=== PATIENT | female | born 1960 | race Caucasian/White ===

== ENCOUNTER → 2016-10-27 | Outpatient (CLI) | payer OTHER ==
--- NOTE | 2016-10-28 07:33 | XR ---
EXAMINATION TYPE: XR foot complete RT DATE OF EXAM: 10/27/2016 1:58 PM CLINICAL HISTORY: pain TECHNIQUE: Frontal, lateral and oblique images of the right foot are obtained. COMPARISON: None. FINDINGS: There is no acute fracture/dislocation evident. The joint spaces appear within normal tenorio its. The overlying soft tissue appears unremarkable. IMPRESSION: There is no acute fracture or dislocation. ICD 10 NO FRACTURE, INITIAL EVALUATION
== END | disposition home or self-care (01) ==
LOC: RADXRYALE 10:30
PROVIDERS: ATTEND Internal Medicine
DX: M79.671 Pain in right foot (principal)

== ENCOUNTER → 2016-12-23 | Outpatient (CLI) | payer OTHER ==
[2016-12-23 11:50] LABS: Basophils # (A) 0.1 k/uL (0-0.2); Basophils % (A) 1 %; CH 29.6; CHCM 33.6; Eosinophils # (A) 0.1 k/uL (0-0.7); Eosinophils % (A) 1 %; HCT 40.6 % (34.0-46.0); HDW 2.48; HGB 13.7 gm/dL (11.4-16.0); Luc # (Auto) 0.16; Luc % (Auto) 2; Lymphocytes % (A) 24 %; MCH 29.9 pg (25.0-35.0); MCHC 33.7 g/dL (31.0-37.0); MCV 88.7 fL (80.0-100.0); Mean Platelet Volume 8.5; Monocytes # (A) 0.4 k/uL (0-1.0); Monocytes % (A) 5 %; Neutrophils # (A) 5.5 k/uL (1.3-7.7); Neutrophils % (A) 67 %; RBC 4.58 m/uL (3.80-5.40); RDW 13.1 % (11.5-15.5); WBC 8.2 k/uL (3.8-10.6); WBC (Perox) 8.46
[2016-12-23 14:41] LABS: Erythrocyte Sedimentation Rate 6 mm/hr (0-20)
== END ==
LOC: LABWHC1 11:09
PROVIDERS: ATTEND Physical Medicine & Rehabilitation
DX: M54.2 Cervicalgia (principal); M35.3 Polymyalgia rheumatica
CPT/HCPCS: 36415; 85025; 85652; 86140

== ENCOUNTER → 2018-11-11 | Outpatient (CLI) | payer OTHER ==
--- NOTE | 2018-11-11 17:47 | MR ---
EXAMINATION TYPE: MR cervical spine wo con DATE OF EXAM: 11/11/2018 COMPARISON: None HISTORY: Neck pain, headaches, BUE weakness CONTRAST: Performed utilizing 0 mL intravenous Gadavist gadolinium contrast. TECHNIQUE: Multiplanar multiecho imaging on a 3.0 Ligia magnet is performed through the cervical spin e. FINDINGS: The craniovertebral junction is normal. Vertebral body alignment is normal. There is an anterior fusion at C5-6. C7-T1: No focal disc herniation or significant disc bulge is evident. No spinal canal stenosis or n eural foraminal stenosis is present. C6-7: Mild broad-based disc bulge is present with anterior thecal sac flattening. No cord contact is evident. No spinal canal stenosis is present. Moderate bilateral foraminal narrowing from uncovertebr al joint hypertrophy is present.. C5-6: Uncovertebral joint hypertrophy is present with mild right foraminal narrowing. Mild endplate c hange may have anterior thecal sac contact in the right and left paracentral regions. No cord contact or spinal canal stenosis is present.. C4-5: No focal disc herniation or significant disc bulge is evident. No spinal canal stenosis or abebe ral foraminal stenosis is present. C3-4: Mild disc bulge may be present with anterior thecal sac contact. No cord contact is evident. No spinal canal stenosis or neural foraminal stenosis is present. C2-3: No focal disc herniation or significant disc bulge is evident. No spinal canal stenosis or abebe ral foraminal stenosis is present. Cord maintains normal signal through its visualized course. IMPRESSIONS: 1. Moderate foraminal narrowing due to uncovertebral joint hypertrophy at C6-7 bilaterally and mild r ight foraminal narrowing at C5-6. 2. No significant disc bulging. No spinal canal stenosis or cord contact is evident.
== END | disposition home or self-care (01) ==
LOC: RADMRIMAIN 07:42
PROVIDERS: ATTEND Physical Medicine & Rehabilitation
DX: M48.02 Spinal stenosis, cervical region (principal); M79.10 Myalgia, unspecified site; E03.9 Hypothyroidism, unspecified; M54.6 Pain in thoracic spine; Z98.1 Arthrodesis status
CPT/HCPCS: 72141

== ENCOUNTER → 2020-04-21 | Outpatient (CLI) | payer OTHER ==
--- NOTE | 2020-04-21 14:45 | XR ---
EXAMINATION TYPE: XR chest 2V DATE OF EXAM: 04/21/2020 COMPARISON: Chest x-ray 04/25/2014 HISTORY: Cough and shortness of breath TECHNIQUE: Frontal and lateral views of the chest are obtained. FINDINGS: There is no focal air space opacity, pleural effusion, or pneumothorax seen. The cardiac silhouette size is within normal limits. The osseous structures are intact. Postop changes noted to the cervical spine. IMPRESSION: No acute cardiopulmonary process.
== END | disposition home or self-care (01) ==
LOC: RADXRYALE 13:43
PROVIDERS: ATTEND Internal Medicine
DX: R05 Cough (principal)
CPT/HCPCS: 71046

== ENCOUNTER → 2021-07-17 | Outpatient (CLI) | payer OTHER | END | disposition home or self-care (01) | LOC: LABWHC1 10:52 | PROVIDERS: ATTEND Nurse Practitioner Family | DX: G70.00 Myasthenia gravis without (acute) exacerbation (principal); H53.9 Unspecified visual disturbance | CPT/HCPCS: 36415; 83519 ==

== ENCOUNTER → 2021-12-23 | Outpatient (CLI) | payer OTHER ==
--- NOTE | 2021-12-23 11:34 | FL ---
EXAMINATION TYPE: FL barium swallow w video DATE OF EXAM: 12/23/2021 MODIFIED SWALLOW / DEGLUTITION STUDY CLINICAL HISTORY: Dysphagia. TECHNIQUE: Deglutition study is performed utilizing thin liquid barium, nectar thick liquid barium, pudding consistency, and barium coated cracker. COMPARISON: None available FINDINGS: Deep silent laryngeal penetration was noted with the thin liquid consistency, cleared with cough. Questionable transient laryngeal penetration with the nectar consistency. No di aspiration. Total fluoroscopic time 2 minutes and 5 seconds. No images on PACS. IMPRESSION: Laryngeal penetration as described above. Please refer to speech therapist notes for furt her details.
== END | disposition home or self-care (01) ==
LOC: RADFLMAIN 10:48
PROVIDERS: ATTEND Psychiatry & Neurology Neurology
DX: R13.10 Dysphagia, unspecified (principal)
CPT/HCPCS: 74230

== ENCOUNTER 2022-02-20 14:34 | Emergency (ER) | payer OTHER ==
[2022-02-20 14:39] VITALS: TEMP 98.3
[2022-02-20] MEDS ORDERED: HYDROmorphone 0.5 MG/0.5 ML SYRINGE IVP STA (15:46)
[2022-02-20] MEDS ORDERED: SODIUM CHLORIDE 0.9% 500 ML 500 ML IV ONE (15:46)
--- NOTE | 2022-02-20 15:49 | ED ---
General Adult HPI - General Chief complaint: Abdominal Pain Stated complaint: CAL Time Seen by Provider: 02/20/22 15:40 Source: patient, RN notes reviewed, old records reviewed Mode of arrival: wheelchair Limitations: no limitations - History of Present Illness Initial comments: 61-year-old female history of myasthenia gravis presenting for evaluation of right-sided abdominal pain which is been present for less than 24 hours. There's been associated nausea. Patient describes the pain is predominantly right upper quadrant with some flank pain. She has not had fever. His been nausea without significant vomiting. She has not had previous abdominal surgery. She had taken some pain medication and omeprazole at home without significant relief. - Related Data Home Medications Medication Instructions Recorded Confirmed ALPRAZolam [Xanax] 1 mg PO BID 02/08/14 02/20/22 Levothyroxine Sodium [Synthroid] 125 mcg PO DAILY 02/08/14 02/20/22 Primidone [Mysoline] 50 mg PO DAILY 02/08/14 02/20/22 Omeprazole 20 mg PO DAILY PRN 02/20/22 02/20/22 Pyridostigmine [Mestinon] 60 mg PO TID 02/20/22 02/20/22 Topiramate [Topamax] 50 mg PO DAILY 02/20/22 02/20/22 tiZANidine HCL 4 mg PO BID PRN 02/20/22 02/20/22 Previous Rx's Medication Instructions Recorded HYDROcodone/APAP 7.5-325MG [[place] 1 tab PO Q6HR PRN 3 Days #12 tab 02/20/22 7.5-325] Allergies Allergy/AdvReac Type Severity Reaction Status Date / Time Iodinated Contrast Media Allergy Anaphylaxis Verified 02/20/22 18:40 [Iodinated Contrast Media - IV Dye] peanut Allergy Anaphylaxis Verified 02/20/22 18:40 shellfish derived Allergy Anaphylaxis Verified 02/20/22 18:40 Review of Systems ROS Statement: Those systems with pertinent positive or pertinent negative responses have been documented in the HPI. ROS Other: All systems not noted in ROS Statement are negative. Past Medical History Past Medical History: Thyroid Disorder Additional Past Medical History / Comment(s): Mysthanias Gravis History of Any Multi-Drug Resistant Organisms: None Reported Past Surgical History: Tonsillectomy, Tubal Ligation Additional Past Surgical History / Comment(s): thyrroidectomy, neck surgery Past Anesthesia/Blood Transfusion Reactions: No Reported Reaction Past Psychological History: Anxiety Smoking Status: Current every day smoker Past Alcohol Use History: Rare Past Drug Use History: None Reported General Exam Limitations: no limitations General appearance: alert, in no apparent distress Head exam: Present: atraumatic, normocephalic Eye exam: Present: normal appearance, PERRL ENT exam: Present: normal exam Neck exam: Present: normal inspection. Absent: tenderness, meningismus Respiratory exam: Present: normal lung sounds bilaterally. Absent: respiratory distress, wheezes Cardiovascular Exam: Present: regular rate, normal rhythm GI/Abdominal exam: Present: soft, tenderness, guarding (Right upper quadrant). Absent: distended Extremities exam: Present: normal inspection, normal capillary refill. Absent: pedal edema, calf tenderness Neurological exam: Present: alert, oriented X3, CN II-XII intact. Absent: motor sensory deficit Psychiatric exam: Present: normal affect, normal mood Skin exam: Present: warm, dry, intact. Absent: cyanosis, diaphoretic Course Vital Signs 02/20/22 02/20/22 02/20/22 14:36 16:00 17:00 Temperature 98.3 F Pulse Rate 71 62 85 Respiratory 16 18 18 Rate Blood Pressure 130/83 147/68 113/86 O2 Sat by Pulse 96 98 97 Oximetry 02/20/22 18:00 Temperature Pulse Rate 80 Respiratory 16 Rate Blood Pressure 122/82 O2 Sat by Pulse 96 Oximetry EKG Findings - EKG Comments: EKG Findings:: EKG: Sinus bradycardia rate of 59, MT interval 154, QRS duration 100, QTC [address] segment elevation. Medical Decision Making - Medical Decision Making 61-year-old female presenting with right sided abdominal pain and flank pain. Patient did have moderate right upper quadrant pain. Ultrasound was performed which is negative for acute cholecystitis but shows hydronephrosis of the right kidney there is hematuria. There is concern for renal colic and obstructing kidney stone. CT is ordered which shows a 9 mm proximal UPJ stone. Other laboratory testing is unremarkable. Patient's pain is controlled in the emergency department. I did discuss case with Dr. Daly covering for urology. Patient is stable for discharge at this time with close follow-up as an outpatient. Return parameters are discussed. Patient has [place] at home but will be given a short course of [place] 7.5 for increased pain. - Lab Data Result diagrams: 02/20/22 15:26 02/20/22 17:11 Lab Results 02/20/22 02/20/22 02/20/22 Range/Units 15:26 15:26 15:26 WBC 17.3 H (3.8-10.6) k/uL RBC 4.79 (3.80-5.40) m/uL Hgb 13.9 (11.4-16.0) gm/dL Hct 43.1 (34.0-46.0) % MCV 90.0 (80.0-100.0) fL MCH 29.1 (25.0-35.0) pg MCHC 32.3 (31.0-37.0) g/dL RDW 14.0 (11.5-15.5) % Plt Count 246 (150-450) k/uL MPV 10.3 Neutrophils % 91 % Lymphocytes % 4 % Monocytes % 3 % Eosinophils % 1 % Basophils % 0 % Neutrophils # 15.8 H (1.3-7.7) k/uL Lymphocytes # 0.7 L (1.0-4.8) k/uL Monocytes # 0.6 (0-1.0) k/uL Eosinophils # 0.1 (0-0.7) k/uL Basophils # 0.1 (0-0.2) k/uL Hypochromasia Slight Poikilocytosis Slight PT 10.8 (9.0-12.0) sec INR 1.0 (<1.2) APTT 24.5 (22.0-30.0) sec Sodium (137-145) mmol/L Potassium (3.5-5.1) mmol/L Chloride (98-107) mmol/L Carbon Dioxide (22-30) mmol/L Anion Gap mmol/L BUN (7-17) mg/dL Creatinine (0.52-1.04) mg/dL Est GFR (CKD-EPI)AfAm (>60 ml/min/1.73 sqM) Est GFR (CKD-EPI)NonAf (>60 ml/min/1.73 sqM) Glucose (74-99) mg/dL Plasma Lactic Acid Krystian 1.6 (0.7-2.0) mmol/L Calcium (8.4-10.2) mg/dL Total Bilirubin (0.2-1.3) mg/dL AST (14-36) U/L ALT (4-34) U/L Alkaline Phosphatase (38-126) U/L Total Protein (6.3-8.2) g/dL Albumin (3.5-5.0) g/dL Amylase (30-110) U/L Lipase (23-300) U/L Urine Color Urine Appearance (Clear) Urine pH (5.0-8.0) Ur Specific [place] (1.001-1.035) Urine Protein (Negative) Urine Glucose (UA) (Negative) Urine Ketones (Negative) Urine Blood (Negative) Urine Nitrite (Negative) Urine Bilirubin (Negative) Urine Urobilinogen (<2.0) mg/dL Ur Leukocyte Esterase (Negative) Urine RBC (0-5) /hpf Ur Squamous Epith Cells (0-4) /hpf Hyaline Casts (0-2) /lpf Urine Mucus (None) /hpf 02/20/22 02/20/22 Range/Units 16:14 17:11 WBC (3.8-10.6) k/uL RBC (3.80-5.40) m/uL Hgb (11.4-16.0) gm/dL Hct (34.0-46.0) % MCV (80.0-100.0) fL MCH (25.0-35.0) pg MCHC (31.0-37.0) g/dL RDW (11.5-15.5) % Plt Count (150-450) k/uL MPV Neutrophils % % Lymphocytes % % Monocytes % % Eosinophils % % Basophils % % Neutrophils # (1.3-7.7) k/uL Lymphocytes # (1.0-4.8) k/uL Monocytes # (0-1.0) k/uL Eosinophils # (0-0.7) k/uL Basophils # (0-0.2) k/uL Hypochromasia Poikilocytosis PT (9.0-12.0) sec INR (<1.2) APTT (22.0-30.0) sec Sodium 139 (137-145) mmol/L Potassium 4.2 (3.5-5.1) mmol/L Chloride 110 H (98-107) mmol/L Carbon Dioxide 25 (22-30) mmol/L Anion Gap 4 mmol/L BUN 19 H (7-17) mg/dL Creatinine 0.69 (0.52-1.04) mg/dL Est GFR (CKD-EPI)AfAm >90 (>60 ml/min/1.73 sqM) Est GFR (CKD-EPI)NonAf >90 (>60 ml/min/1.73 sqM) Glucose 113 H (74-99) mg/dL Plasma Lactic Acid Krystian (0.7-2.0) mmol/L Calcium 9.3 (8.4-10.2) mg/dL Total Bilirubin 0.5 (0.2-1.3) mg/dL AST 23 (14-36) U/L ALT 15 (4-34) U/L Alkaline Phosphatase 113 (38-126) U/L Total Protein 6.9 (6.3-8.2) g/dL Albumin 4.4 (3.5-5.0) g/dL Amylase 65 (30-110) U/L Lipase 62 (23-300) U/L Urine Color Light Red Urine Appearance Cloudy H (Clear) Urine pH 5.5 (5.0-8.0) Ur Specific [place] 1.023 (1.001-1.035) Urine Protein 1+ H (Negative) Urine Glucose (UA) Negative (Negative) Urine Ketones 1+ H (Negative) Urine Blood Large H (Negative) Urine Nitrite Negative (Negative) Urine Bilirubin Negative (Negative) Urine Urobilinogen <2.0 (<2.0) mg/dL Ur Leukocyte Esterase Small H (Negative) Urine RBC >182 H (0-5) /hpf Ur Squamous Epith Cells 2 (0-4) /hpf Hyaline Casts 10 H (0-2) /lpf Urine Mucus Moderate H (None) /hpf Disposition Clinical Impression: Calculus of kidney, Hydronephrosis with renal and ureteral calculous obstruction Disposition: HOME SELF-CARE Condition: Fair Instructions (If sedation given, give patient instructions): Kidney Stones (ED) Prescriptions: HYDROcodone/APAP 7.5-325MG [[place] 7.5-325] 1 tab PO Q6HR PRN 3 Days #12 tab PRN Reason: Pain Is patient prescribed a controlled substance at d/c from ED?: No Referrals: Pam Infante MD [Primary Care Provider] - 1-2 days Sulaiman Daly MD [STAFF PHYSICIAN] - 1-2 days Time of Disposition: 18:50
[2022-02-20 16:20] LABS: Basophils # (A) 0.1 k/uL (0-0.2); Basophils % (A) 0 %; Eosinophils # (A) 0.1 k/uL (0-0.7); Eosinophils % (A) 1 %; HCT 43.1 % (34.0-46.0); HGB 13.9 gm/dL (11.4-16.0); Hypochromasia Slight; Lymphocytes # (A) 0.7 k/uL (1.0-4.8); Lymphocytes % (A) 4 %; MCH 29.1 pg (25.0-35.0); MCHC 32.3 g/dL (31.0-37.0); Mean Platelet Volume 10.3; Monocytes # (A) 0.6 k/uL (0-1.0); Monocytes % (A) 3 %; Neutrophils # (A) 15.8 k/uL (1.3-7.7); Neutrophils % (A) 91 %; Platelet Count 246 k/uL (150-450); Poikilocytosis Slight; RBC 4.79 m/uL (3.80-5.40); WBC 17.3 k/uL (3.8-10.6)
[2022-02-20 16:29] LABS: Appearance,Urine Cloudy (Clear); Bilirubin,Urine Negative (Negative); Blood,Urine Large (Negative); Color,Urine Light Red; Glucose,Urine (UA) Negative (Negative); Hyaline Casts,Urine 10 /lpf (0-2); Ketones,Urine 1+ (Negative); Leukocyte Esterase,Urine Small (Negative); Mucus,Urine Moderate /hpf; Nitrite,Urine Negative (Negative); PH, Urine 5.5 (5.0-8.0); Protein,Urine 1+ (Negative); RBC,Urine >182 /hpf (0-5); Specific Gravity,Urine 1.023 (1.001-1.035); Squamous Epithelial Cell,Urine 2 /hpf (0-4); Urobilinogen,Urine <2.0 mg/dL (<2.0)
[2022-02-20 16:49] LABS: Partial Thromboplastin Time 24.5 sec (22.0-30.0); Prothrombin Time 10.8 sec (9.0-12.0)
--- NOTE | 2022-02-20 16:49 | US ---
EXAMINATION TYPE: US gallbladder DATE OF EXAM: 02/20/2022 COMPARISON: NONE CLINICAL HISTORY: ruq pain. Right flank pain. NPO. EXAM MEASUREMENTS: Liver Length: 19.3 cm Gallbladder Wall: 0.2 cm CBD: 0.5 cm Right Kidney: 9.4 x 5.9 x 6.0 cm Pancreas: Obscured by bowel gas Liver: wnl Gallbladder: wnl Evidence for sonographic High's sign: neg CBD: Limited visualization Right Kidney: Moderate hydronephrosis. Anterior cortical septated cystic lesion seen = 3.4 x 2.7 x 1.9 cm IMPRESSION: 1. Moderate right hydronephrosis. 2. No evidence for cholecystitis. 3. Complex right renal cyst with septations. This could be completely evaluated with nonemergent MRI or CT with IV contrast renal mass protocol.
[2022-02-20] MEDS ORDERED: HYDROmorphone 1 MG/ML 1 ML SYRINGE IVP STA (17:02)
[2022-02-20 17:30] LABS: ALT 15 U/L (4-34); AST 23 U/L (14-36); African American GFR (CKD) >90 (>60 ml/min/1.73 sqM); Albumin 4.4 g/dL (3.5-5.0); Alkaline Phosphatase 113 U/L (38-126); Amylase 65 U/L (30-110); Anion Gap 4 mmol/L; Blood Urea Nitrogen 19 mg/dL (7-17); Calcium 9.3 mg/dL (8.4-10.2); Carbon Dioxide 25 mmol/L (22-30); Chloride 110 mmol/L (98-107); Glucose 113 mg/dL (74-99); Lipase 62 U/L (23-300); Non-African American GFR(CKD) >90 (>60 ml/min/1.73 sqM); Potassium 4.2 mmol/L (3.5-5.1); Sodium 139 mmol/L (137-145); Total Bilirubin 0.5 mg/dL (0.2-1.3); Total Protein 6.9 g/dL (6.3-8.2)
--- NOTE | 2022-02-20 17:59 | CT ---
EXAMINATION TYPE: CT abdomen pelvis wo con CT DLP: 446.1 mGycm, Automated exposure control for dose reduction was used. DATE OF EXAM: 02/20/2022 5:31 PM COMPARISON: None CLINICAL INDICATION:Female, 61 years old with history of flank pain; RT side flank pain and nausea TECHNIQUE: Standard CT of the abdomen and pelvis without IV or oral contrast. Lack of IV or oral co ntrast limits evaluation of solid and hollow organ viscera. Coronal and sagittal reformats were perfo rmed. FINDINGS: LOWER CHEST: Unremarkable ABDOMEN LIVER: Unremarkable GALLBLADDER AND BILE DUCTS: Unremarkable. PANCREAS: Unremarkable. SPLEEN: Scattered calcified granulomas. ADRENAL GLANDS: Unremarkable. KIDNEYS AND URETERS: Moderate right hydronephrosis secondary to 9 mm calculus at the ureteropelvic ju nction. Additional nonobstructing renal calculi bilaterally. There is increased right renal perinephr ic fat stranding compared to left. No evidence of left hydronephrosis. PELVIS BLADDER: Unremarkable REPRODUCTIVE: Fibroid uterus with coarse calcifications. ABDOMEN & PELVIS STOMACH AND BOWEL: No evidence of bowel obstruction. PERITONEUM: No evidence of pneumoperitoneum or free fluid. VASCULATURE: No evidence of aortic aneurysm. MUSCULOSKELETAL: No acute osseous abnormalities. LYMPH NODES: No gross evidence for lymphadenopathy. SOFT TISSUE/ABDOMINAL WALL: Unremarkable IMPRESSION: 1. Moderate right hydronephrosis secondary to 9 mm calculus at the ureteropelvic junction. 2. Additional nonobstructing renal calculi bilaterally.
[2022-02-20] MEDS ORDERED: KETOROLAC 15 MG/ML 1 ML VIAL IVP STA (18:00)
[2022-02-20 18:47] VITALS: BP 122/82; PULSE 80; RESP 16
== END 2022-02-20 19:10 | disposition home or self-care (01) ==
LOC: EC 14:34
DX: N13.2 Hydronephrosis with renal and ureteral calculous obstruction (principal); F17.200 Nicotine dependence, unspecified, uncomplicated; E07.9 Disorder of thyroid, unspecified; Z91.010 Allergy to peanuts; Z91.013 Allergy to seafood; Z91.041 Radiographic dye allergy status; Z79.890 Hormone replacement therapy
CPT/HCPCS: 36415; 93005; 80053; 82150; 83605; 83690; 85025; 85610; 85730; 81001; 76705; 74176; 99284; 96374; 96361; 96375; J1170 ×2; J1885

== ENCOUNTER 2022-03-04 07:19 | Day surgery (SDC) | payer OTHER ==
--- NOTE | 2022-02-26 11:59 | P.HPIHPCON ---
History of Present Illness H&P Date: 02/26/22 This is a 61-year-old female with history of a 1 cm right-sided proximal stone, and multiple nonobstructive renal stones. Option of ureteroscopy with holmium laser versus ESWL were discussed. Discussed risk and benefit of each approach. She agreed to proceed with right-sided ureteroscopy with holmium laser lithotripsy. Discussed the risk which includes but not limited to bleeding, infection, injury to the ureter. Discussed also risk from anesthesia. She understood all the risk and agree to proceed with a right-sided ureteroscopy, with holmium laser lithotripsy, stone basketing and stent insertion Consent for Procedure: I have explained the operation/procedure to the patient, including the risks, benefits, side effects, alternative therapies (including not receiving the proposed treatment or service), the likelihood of the patient achieving his/her goals, and potential recuperation problems for the procedure/sedation/analgesia, as well as any blood products, if indicated. I also explained to the patient the risks, benefits and side effects of the alternatives, as well as the risks related to not receiving the proposed procedure, care, treatment, or services. Past Medical History Past Medical History: Thyroid Disorder Additional Past Medical History / Comment(s): Mysthanias Gravis History of Any Multi-Drug Resistant Organisms: None Reported Past Surgical History: Tonsillectomy, Tubal Ligation Additional Past Surgical History / Comment(s): thyrroidectomy, neck surgery Past Anesthesia/Blood Transfusion Reactions: No Reported Reaction Past Psychological History: Anxiety Smoking Status: Current every day smoker Past Alcohol Use History: Rare Past Drug Use History: None Reported Medications and Allergies Home Medications Medication Instructions Recorded Confirmed Type ALPRAZolam [Xanax] 1 mg PO BID 02/08/14 02/20/22 History Levothyroxine Sodium [Synthroid] 125 mcg PO DAILY 02/08/14 02/20/22 History Primidone [Mysoline] 50 mg PO DAILY 02/08/14 02/20/22 History HYDROcodone/APAP 7.5-325MG [[place] 1 tab PO Q6HR PRN 3 Days #12 tab 02/20/22 Rx 7.5-325] Omeprazole 20 mg PO DAILY PRN 02/20/22 02/20/22 History Pyridostigmine [Mestinon] 60 mg PO TID 02/20/22 02/20/22 History Topiramate [Topamax] 50 mg PO DAILY 02/20/22 02/20/22 History tiZANidine HCL 4 mg PO BID PRN 02/20/22 02/20/22 History Allergies Allergy/AdvReac Type Severity Reaction Status Date / Time Iodinated Contrast Media Allergy Anaphylaxis Verified 02/20/22 18:40 [Iodinated Contrast Media - IV Dye] peanut Allergy Anaphylaxis Verified 02/20/22 18:40 shellfish derived Allergy Anaphylaxis Verified 02/20/22 18:40 Surgical - Exam - General no distress - Eyes normal ocular movement, no pale - ENT normal nares, normal mucosa - Respiratory normal expansion, normal respiratory effort - Abdomen Abdomen: soft, non tender Assessment and Plan Assessment: OR for right-sided ureteroscopy, with holmium laser lithotripsy, stone basketing and stent insertion
[2022-03-03 09:03] VITALS: BMI 23.5
[~2022-03-04 07:19] MED LIST: DEXAMETHASONE SOD PHOSPHATE 4 MG/ML 1 ML VIAL IV ONE; LACTATED RINGERS 1,000 ML IV SCH; ONDANSETRON 4 MG/2 ML VIAL IVP ONE
--- NOTE | 2022-03-04 07:39 | XR ---
EXAMINATION TYPE: XR KUB DATE OF EXAM: 03/04/2022 7:32 AM CLINICAL HISTORY: Right-sided flank pain. TECHNIQUE: Single supine KUB image of the abdomen is obtained. COMPARISON: CT abdomen and pelvis February 20, 2022. FINDINGS: Persistent 9 mm calculus medial to the lower pole right kidney presumed within the proximal ureter at L3-L4 disc space level likely stable in position. There is 9 mm calculus lower pole right kidney current study likely changed in position now lower pole calyx level. Tiny left-sided renal noam culi CT less well seen on plain films. The 6 mm upper pole right renal calculus at L2 level is not cl early seen on plain films. Scattered small bilateral pelvic phleboliths redemonstrated mid to lower p ole level. Overall nonobstructive bowel gas pattern. Visualized osseous structures are intact. Impression: As above.
[2022-03-04] MEDS ORDERED: fentaNYL (PF) 50 MCG/ML 2 ML AMP IV ONE (08:27)
[2022-03-04 08:30] VITALS: TEMP 97.4
[2022-03-04] MEDS ORDERED: PROPOFOL 10 MG/ML 20 ML VIAL IV ONE (09:30)
[2022-03-04] MEDS ORDERED: LIDOCAINE 2% INJ 20 MG/ML (2 ML VIAL) ONE (09:30)
[2022-03-04] MEDS ORDERED: fentaNYL (PF) 50 MCG/ML 2 ML AMP ONE (09:30)
[2022-03-04] MEDS ORDERED: MIDAZOLAM 2 MG/2 ML VIAL ONE (09:30)
[2022-03-04 10:55] VITALS: RESP 16
[2022-03-04] MEDS: HYDROmorphone 0.5 MG/0.5 ML SYRINGE IVP PRN ×2 (10:56→11:01)
--- NOTE | 2022-03-04 10:56 | FL ---
EXAMINATION TYPE: FL guidance operating room DATE OF EXAM: 03/04/2022 CLINICAL HISTORY: Right-sided kidney stone. TECHNIQUE: Fluoroscopy. COMPARISON: X-ray KUB earlier today. FINDINGS: Fluoroscopic guidance was provided during left-sided stone lithotripsy treatment procedure performed by Dr. Walton. A total of 20 seconds of fluoroscopic time was utilized during the procedu re and 2 spot images was acquired. Intraoperative images show retraction of the ureter stent and adva ncement of guidewire. IMPRESSION: As Above.
[2022-03-04 12:37] VITALS: BP 122/74; PULSE 63
--- NOTE | 2022-03-04 15:01 | P.OP ---
Date of Procedure: 03/04/22 Preoperative Diagnosis: Left ureteral stone Postoperative Diagnosis: Same Procedure(s) Performed: Cystoscopy, right ureteroscopy, holmium laser lithotripsy, stone basketing and stent insertion Implants: 6-Czech by 24 cm stent in the right ureter Anesthesia: TK Surgeon: Xavi Kuhn Estimated Blood Loss (ml): 20 Pathology: other (left renal stone) Condition: stable Disposition: PACU Indications for Procedure: This is a 61-year-old female with history of a 1 cm right-sided proximal stone, and multiple nonobstructive renal stones. Option of ureteroscopy with holmium laser versus ESWL were discussed. Discussed risk and benefit of each approach. She agreed to proceed with right-sided ureteroscopy with holmium laser lithotripsy. Discussed the risk which includes but not limited to bleeding, infection, injury to the ureter. Discussed also risk from anesthesia. She understood all the risk and agree to proceed with a right-sided ureteroscopy, with holmium laser lithotripsy, stone basketing and stent insertion Operative Findings: Large stone in the proximal ureter multiple stones within the lower pole Description of Procedure: Patient brought to the operating room, general anesthesia was induced which was prepped and draped in sterile fashion and placed in dorsal lithotomy position. Cystoscopy fitted with a 21-Czech sheath was inserted per urethra, cystoscopy was performed which showed no abnormality within the bladder. Attention was then carried to the right ureteral orifice, a semirigid ureteroscope was advanced up the right ureteral orifice, the scope was advanced into the proximal ureter where the stone was visualized. Of note the stone was at the UPJ with significant edema around the stone. I attempted to laser the stone of the proximal ureter, but the stone moved into the kidney. At this time a sensor wire was advanced through the ureteroscope and the ureteroscope was withdrawn with the wire in place. Next a 1214 Czech access sheath was passed over the wire into the proximal ureter. Next a flexibile ureteroscope was inserted through the access sheath, renoscopy was performed which visualized the stone which was now within the renal pelvis. Using the holmium laser the stone was fragmented into small fragments, sizable fragments were removed and sent for analysis. Additionally there were multiple stones within the lower pole which were repositioned to the upper pole using the stone basket and fragmented, again sizable fragments were removed using the stone basket. Repeat renoscopy showed no injury to the kidney or any sizable fragments, on fluoroscopy there was no radiopaque density. Pullback ureteroscopy was performed which showed no injury to the ureter or any ureteral stones. But of note there was edema at the site of stone impaction. As ureteroscope was withdrawn a sensor wire was advanced through over the wire, the proximal curl was visualized on fluoroscopy and the distal curl was visualized using the cystoscope. The bladder was emptied at the end of the case. Patient tolerated procedure well was taken to recovery in stable condition
== END 2022-03-04 12:19 | disposition home or self-care (01) ==
LOC: OR 07:19
PROVIDERS: ATTEND Urology
DX: N20.2 Calculus of kidney with calculus of ureter (principal); E07.9 Disorder of thyroid, unspecified; G70.00 Myasthenia gravis without (acute) exacerbation; K21.9 Gastro-esophageal reflux disease without esophagitis; F41.9 Anxiety disorder, unspecified; F17.210 Nicotine dependence, cigarettes, uncomplicated; Z87.442 Personal history of urinary calculi; Z97.2 Presence of dental prosthetic device (complete) (partial); Z98.51 Tubal ligation status; Z98.890 Other specified postprocedural states; Z79.899 Other long term (current) drug therapy; Z91.041 Radiographic dye allergy status; Z79.890 Hormone replacement therapy; Z91.010 Allergy to peanuts; Z91.013 Allergy to seafood
CPT/HCPCS: 74018; 52356; C2625; C1769 ×2; C1894; J2250; J1100; J0690; J2405; J3010; J2704; J1170; J2001

== ENCOUNTER → 2022-03-19 | Outpatient (CLI) | payer OTHER ==
[2022-03-19 14:25] LABS: Basophils # (A) 0.04 X 10*3/uL (0.00-0.10); Basophils % (A) 0.5 %; Eosinophils # (A) 0.16 X 10*3/uL (0.04-0.35); HCT 38.2 % (37.2-46.3); HGB 12.4 g/dL (12.0-15.0); Immature Grans, Automated 0.2 %; Lymphocytes # (A) 2.18 X 10*3/uL (0.90-5.00); Lymphocytes % (A) 26.6 %; MCH 28.3 pg (27.0-32.0); MCHC 32.5 g/dL (32.0-37.0); MCV 87.2 fL (80.0-97.0); Mean Platelet Volume 12.3 fL (9.5-12.2); Monocytes # (A) 0.72 X 10*3/uL (0.20-1.00); Monocytes % (A) 8.8 %; NRBC Per 100 WBC 0 /100 WBCS (0.0-0.0); Neutrophils # (A) 5.08 X 10*3/uL (1.80-7.70); Neutrophils % (A) 61.9 %; Platelet Count 284 X 10*3/uL (140-440); RBC 4.38 X 10*6/uL (4.10-5.20); RDW 13.5 % (11.5-14.5)
[2022-03-19 14:49] LABS: African American GFR (CKD) 109.9 (60.0-200.0); Albumin 4.3 g/dL (3.8-4.9); Albumin/Globulin Ratio 1.59 (1.60-3.17); Anion Gap 10.8 mmol/L (10.00-18.00); BUN/Creat Ratio 19.86 Ratio (12.00-20.00); Blood Urea Nitrogen 13.9 mg/dL (9.0-27.0); Calcium 9.7 mg/dL (8.7-10.3); Carbon Dioxide 22.2 mmol/L (20.0-27.5); Globulin 2.7 g/dL (1.6-3.3); Non-African American GFR(CKD) 94.8 (60.0-200.0); Potassium 3.9 mmol/L (3.5-5.5); Total Bilirubin 0.4 mg/dL (0.30-1.20)
== END | disposition home or self-care (01) ==
LOC: LABWHC1 09:42
PROVIDERS: ATTEND Psychiatry & Neurology Neurology
DX: R13.10 Dysphagia, unspecified (principal); H53.2 Diplopia; R53.1 Weakness
CPT/HCPCS: 36415; 80053; 82607; 82746; 83519; 84443; 85025; 86038

== ENCOUNTER → 2022-04-14 | Outpatient (CLI) | payer OTHER ==
--- NOTE | 2022-04-15 04:48 | MR ---
EXAMINATION TYPE: MR kidney wo/w con DATE OF EXAM: 04/14/2022 COMPARISON: CT scan 02/20/2022 HISTORY: Right renal mass CONTRAST: Standard multiplanar, multisequence MRI departmental protocol images were obtained without contrast a nd with 6 mL intravenous Gadavist gadolinium contrast. The kidneys have fairly normal size and contour. There is exophytic 2.2 cm cortical cyst lateral uppe r pole left kidney. No hydronephrosis. Ureters are not dilated. There is no adrenal mass. Spleen is intact. The stomach is intact. No pancreatic mass. Gallbladder ap pears normal. The liver shows no focal defect. The bile ducts are not dilated. Common bile duct is 6 mm. There is no retroperitoneal adenopathy. There is no ascites. No sign of free air. No sign of pleural effusion.No sign of a bowel obstruction. The contrast images show normal enhancement of the kidneys. There is normal enhancement of the portal venous system. No pathologic enhancement. IMPRESSION: Left renal cortical cyst. No evidence of right-sided renal mass. There is clearing of the right-sided hydronephrosis compared to old CT scan.
== END | disposition home or self-care (01) ==
LOC: RADMRIMAIN 14:30
PROVIDERS: ATTEND Urology
DX: D41.01 Neoplasm of uncertain behavior of right kidney (principal); N13.30 Unspecified hydronephrosis; N28.1 Cyst of kidney, acquired
CPT/HCPCS: 74183; A9585

== ENCOUNTER → 2022-10-29 | Outpatient (CLI) | payer OTHER ==
--- NOTE | 2022-11-02 08:13 | MM ---
Reason for Exam: Screening (asymptomatic). Last mammogram was performed 2 year(s) and 10 month(s) ago. Patient History: Menarche at age 16. First Full-Term at age 20. Postmenopausal. US breast aspiration single RT on the Right side. Maternal grandmother had breast cancer at or over age 50. Paternal grandmother had breast cancer at or over age 50. Mother had breast cancer at or over age 50. Sister had breast cancer under age 50. Risk Values: Yolanda 5 year model risk: 6.2%. NCI Lifetime model risk: 28.2%. Prior Study Comparison: 04/02/2014 Bilateral MG screening mammo w CAD - 2, [facility]. 12/13/2019 Bilateral MG screening mammo w CAD - 2, [facility]. Tissue Density: The breast tissue is heterogeneously dense. This may lower the sensitivity of mammography. Findings: Analyzed By CAD. Right breast demonstrates no new finding compared to 2013 to correlate with nipple inversion. No distortions, masses or calcifications Left breast, no suspicious group of microcalcifications or new suspicious mass in either breast. Overall Assessment: Incomplete: need additional imaging evaluation, BI-RAD 0 Management: Diagnostic Breast Ultrasound of the right breast. Ultrasound for retroareolar region for nipple inversion. A clinical breast exam by your physician is recommended on an annual basis and results should be correlated with mammographic findings. [facility] will attempt to contact patient to return for supplemental views and ultrasound if indicated. Electronically signed and approved by: Cristobal Delgadillo DO
== END | disposition home or self-care (01) ==
LOC: RADMAMWWP 13:24
PROVIDERS: ATTEND Internal Medicine
DX: Z12.31 Encounter for screening mammogram for malignant neoplasm of breast (principal); Z78.0 Asymptomatic menopausal state; Z80.3 Family history of malignant neoplasm of breast
CPT/HCPCS: 77063; 77067

== ENCOUNTER → 2025-01-29 | Outpatient (CLI) | payer OTHER | END | disposition home or self-care (01) | LOC: LABWHC1 11:17 | PROVIDERS: ATTEND Psychiatry & Neurology Neurology | DX: G70.00 Myasthenia gravis without (acute) exacerbation (principal); H53.2 Diplopia | CPT/HCPCS: 36415; 83516 ==